=== PATIENT | female | born 1965 ===

== ENCOUNTER 2018-12-21 05:25 | Day surgery (SDC) | payer OTHER ==
[~2018-12-21 05:25] MED LIST: AVAPRO300 MG PO; HUMALOG KW200 UNIT/1; LANTUS100 U/ML SQ; LIPITOR40 MG PO; NORVASC2.5 M1 PO; NOVOLOG100 U/ML SQ; SYNTHROID200 MCG PO; SYNTHROID50 MCG PO
== END 2018-12-21 14:15 | disposition home or self-care (01) ==
LOC: CIR.AMB 05:25
DX: S42.222A 2-part displaced fracture of surgical neck of left humerus, initial encounter for closed fracture (principal)